=== PATIENT | female | born 1935 | race Caucasian/White ===

== ENCOUNTER → 2018-09-13 | Outpatient (CLI) | payer MEDICARE ==
--- NOTE | 2018-09-13 15:37 | US ---
EXAMINATION TYPE: US venous doppler duplex LE RT DATE OF EXAM: 09/13/2018 3:27 PM COMPARISON: NONE CLINICAL HISTORY: M79.661 pain in right lower leg. Right lower leg swelling x 1 week SIDE PERFORMED: Right TECHNIQUE: The lower extremity deep venous system is examined utilizing real time linear array sonog koko with graded compression, doppler sonography and color-flow sonography. VESSELS IMAGED: External Iliac Vein (EIV) Common Femoral Vein Deep Femoral Vein Greater Saphenous Vein * Femoral Vein Popliteal Vein Small Saphenous Vein * Proximal Calf Veins (* superficial vessels) Right Leg: Appears negative for DVT, 4.7 x 0.8 x 2.4cm cystic area seen lateral to vessel in poplite al fossa IMPRESSION: 1. Right lower extremity ultrasound negative for deep venous thrombosis. 2. Popliteal fossa cyst
== END | disposition home or self-care (01) ==
LOC: RADUSWWP 15:03
PROVIDERS: ATTEND Internal Medicine
DX: M71.21 Synovial cyst of popliteal space [Baker], right knee (principal)